=== PATIENT | female | born 2000 | race Caucasian/White ===

== ENCOUNTER 2021-02-01 16:48 | Emergency (ER) | payer MEDICAID, SELFPAY ==
[2021-02-01 16:49] VITALS: BP 156/88; PULSE 90; RESP 16; TEMP 36.6; O2SAT 96; BMI 29.6
--- NOTE | 2021-02-01 17:12 | EKG12_ITS ---
Test Reason : CHEST PAIN Blood Pressure : / mmHG Vent. Rate : 091 BPM Atrial Rate : 091 BPM P-R Int : 144 ms QRS Dur : 106 ms QT Int : 360 ms P-R-T Axes : 024 034 053 degrees QTc Int : 442 ms Normal sinus rhythm Normal ECG Confirmed by FRANCI TRACY, MARIA ELENA ([id number]), news assignment editor CAMILA ALEXANDRE ([id number]) on 02/03/2021 2:42:41 PM Referred By: FELICITA Confirmed By:MAGALI KOROMA MD
--- NOTE | 2021-02-01 17:12 | CT_ITS ---
EXAMINATION : Head CT w/out contrast HISTORY : vertigo COMPARISON : None. TECHNIQUE : Multiple contiguous axial images were obtained from the skull base to the vertex without intravenous contrast. A radiation dose optimization technique was used for this scan. FINDINGS : The ventricles and sulci are normal in size. There is no evidence for acute intracranial hemorrhage, mass effect, or midline shift. There is no extra-axial fluid collection. There is normal flores-white differentiation, without CT evidence of acute ischemia or infarct. The skull base and calvarium are unremarkable. The orbits are unremarkable. The paranasal sinuses are clear. The mastoid air cells are well-aerated. The soft tissues are unremarkable. CT/Brain/Head without Contrast IMPRESSION: No acute intracranial abnormality. Electronically Signed: Elijah Gomez MD at 18:14 EDT Tel , Service support ,
[2021-02-01] MEDS: Meclizine HCl 25 MG Tablet PO (17:17)
[2021-02-01 17:24] LABS: Absolute Lymphocyte Count 2.74 X10^3/uL (0.83-4.51); Absolute Neutrophil Count 7.3 X10^3/uL (2.0-7.7); Basophil# 0.04 X10^3/uL; Basophil% 0.4 % (0-1); Eosinophil# 0.26 X10^3/uL; Eosinophils% 2.4 % (0-5); Hematocrit 41.9 % (37-47); Hemoglobin 13.8 g/dL (12.0-15.0); Lymphocyte # 2.74 X10^3/ul (4.0); Lymphocyte % 24.9 % (19-41); Mean Corp Hgb Conc 32.9 g/dL (32-36); Mean Corpuscular Hgb 27.4 pg (27.0-32.0); Mean Corpuscular Volume 83.3 fL (81-99); Mean Platelet Vol. 9.4 fl (6.2-12.0); Monocyte# 0.59 X10^3/uL; Monocyte% 5.4 % (0-10); NRBC Flagged by Analyzer 0 % (0-5); Neutrophil # 7.32 X10^3/uL (2.7-7.7); Neutrophil % 66.5 % (47-70); Platelet Count 330 K/mm3 (150-450); RBC Distribution Width CV 13.7 % (11.6-14.6); RBC Distribution Width SD 40.9 fl (35.1-43.9); Red Blood Count 5.03 M/mm3 (4.2-5.4)
--- NOTE | 2021-02-01 17:41 | ED.DCSUM_ITS ---
History of Present Illness Chief Complaint: Dizziness Informant: Patient Narrative: Patient is a 20-year-old female who presents to the emergency department for dizziness. She has had these episodes before in the past over the past couple of weeks. They typically only last 20 minutes and resolve on their own. This episode started yesterday and has been continuous. Sitting still resolves her symptoms. Looking around her any movement aggravates her symptoms. She feels like she could pass out that the room spinning sensation gets so bad. She does get nauseous with this. She occasionally see spots in her vision. She denies any headache, neck stiffness. No sore throat. She denies any ringing in her ears. No shortness of breath or heart palpitations. She does occasionally get chest pains, she does not know aggravating or relieving factors with this. She is currently denying any pain now. No abdominal pain. No swelling or pain in her legs. She denies any urinary symptoms. She denies any head trauma. She has not been taking anything for her symptoms. Past Medical History - Allergies and Home Meds Allergies/Adverse Reactions: Allergies ceftriaxone [From Rocephin] Allergy (Verified 02/01/21 16:51) Other SEIZURE Primary Care Physician: Ezio Smith MD [STAFF PHYSICIAN] - 2 Days [facility] Doctor,Out of [Primary Care Provider] - Prior records reviewed: Yes Surgical History: no surgical history Smoking Status: Never smoker Review of Systems All systems negative except as indicated General: Denies: Chills, Fever, Sweats Eyes: Denies: Blurred Vision - bilaterally, Diplopia ENT: Denies: Rhinorrhea, Sore throat Cardiovascular: Reports: Chest pain. Denies: Palpitations Respiratory: Denies: Dyspnea, Cough, Dyspnea on exertion Gastrointestinal: Reports: Nausea. Denies: Abdominal pain, Vomiting, Diarrhea, Melena, Hematochezia Genitourinary: Denies: Dysuria, Hematuria, Frequency Musculoskeletal: Denies: Back pain, Extremity Pain Skin: Denies: Rash, Wounds Neurological: Reports: - - Dizziness. Denies: Headache, Weakness, Numbness Physical Exam Vital Signs/Narrative: Vital Signs Temp Pulse Resp BP Pulse Ox 02/01/21 16:49 97.9 F 90 16 156/88 H 96 Inital Vital Signs reviewed: Yes General: Well nourished, Well developed, No Acute Distress, - - Patient lying still flat on her back. Head: Normocephalic, Atraumatic Eyes: Perrl, EOMI, - - Mild horizontal nystagmus that is fatigable. ENT: Moist mucous membranes, No rhinorrhea Neck: Supple, Nontender Cardiovascular: Regular rate, Regular rhythm, No murmurs Respiratory: No distress, CTA bilaterally, Chest nontender Abdomen: Soft, Nontender, Nondistended, Normal bowel sounds Back: Nontender, Normal Inspection Extremities: Nontender, No edema Skin: Normal color, No rash Neurological: Alert, Oriented x3, Cranial nerves II-XII grossly intact, Normal Strength, Normal Sensation. Negative for: Left side facial droop, Right side facial droop Psychological: Normal affect, Normal Mood Diagnostic/Tx/Re-eval - EKG Initial EKG Interpretation: - - Rate of 91 bpm normal sinus rhythm. Normal intervals. Normal axis. No significant ST elevations or depressions. No T wave abnormalities. - Medical Decision Making Patient presents to the ED for dizziness. She describes as a room spinning sensation. Upon arrival to the ED she is mildly hypertensive but otherwise normal vital signs. She does not have any focal neurological deficits. Keeping completely still resolved her symptoms. This does sound like a peripheral vertigo. She has never been worked up before in the past will check CT head as well as basic lab work. She is given a dose of meclizine for symptomatic treatment. Patient CT scan of her head did not reveal any acute intracranial findings. Lab work did not show any significant electrolyte disturbance or blood count abnormality. She is feeling much better and her dizziness has resolved after the meclizine. I have very low concern for CVA given the resolution of symptoms with treatment and lack of other focal findings. She is starting to have a mild headache but refusing any treatment for this. She does feel comfortable going home. We will write a prescription for meclizine for home treatment. She is to follow-up with her PCP as soon as possible. Return precautions are reviewed with her including any worsening symptoms, developing any neurological deficits. She understands and is agreeable this plan. Discharged home in stable condition. All questions answered. ED Disposition - Plan for ED Patient: Disposition: Home or Assisted Living Diagnosis: Dizziness Instructions: ED Vertigo, Unspecified Prescriptions: Meclizine HCl [Antivert] 25 mg PO 4X/DAY PRN PRN #20 tablet PRN Reason: Dizziness Prescription Printed Referrals: [facility] Doctor,Out of [Primary Care Provider] - Ezio Smith MD [STAFF PHYSICIAN] - 2 Days
[2021-02-01 17:42] LABS: Anion Gap 4 (5-15); BUN 12 mg/dL (7-18); BUN/Creat Ratio 15.4 RATIO (10-20); Calcium,Total 10.2 mg/dL (8.5-10.1); Chloride 107 mmol/L (98-107); Creatinine, Serum 0.78 mg/dL (0.55-1.02); EST Glomerular Filtration Rate 101 mL/min (>60); Est Glom Filt Rate - Afr Amer 122 mL/min (>60); Estimated Creatinine Clearance 104.39 ml/min; Glucose 100 mg/dL (74-106); Internal QC Validated? YES +Cl - CLEAR BKGD; Potassium 3.6 mmol/L (3.5-5.1); Pregnancy, Serum, hCG Quali. NEGATIVE Negative; Sodium Level 137 mmol/L (136-145)
[2021-02-01 17:59] VITALS: BP 117/75; PULSE 75; RESP 16; O2SAT 98
[2021-02-01 18:43] VITALS: BP 124/74; PULSE 62; RESP 15; O2SAT 98
== END 2021-02-01 18:45 | disposition home or self-care (01) ==
PROVIDERS: Emergency Provider Emergency Medicine
DX: R42 Dizziness and giddiness (principal); H55.00 Unspecified nystagmus; Z88.1 Allergy status to other antibiotic agents
CPT/HCPCS: 70450; 80048; 84484; 84703; 85025; 93005; 99284; A4216

== ENCOUNTER → 2021-05-04 11:34 | Outpatient (CLI) | payer MEDICAID, SELFPAY ==
[2021-05-04 10:58] VITALS: BMI 29.6
[2021-05-04 16:25] LABS: Chlamydia Trachomatis by PCR Negative (Negative); Neisserai gonorrhoeae by PCR Negative (Negative); Probe Check PASS; Sample Adequacy Control PASS; Specimen Processing Control PASS
== END ==
PROVIDERS: Referring Provider Nurse Practitioner Women's Health; Visit Provider Nurse Practitioner Women's Health
DX: Z11.3 Encounter for screening for infections with a predominantly sexual mode of transmission (principal)
CPT/HCPCS: 87491; 87591

== ENCOUNTER 2021-06-20 21:02 | Emergency (ER) | payer MEDICAID, SELFPAY ==
[2021-06-20 21:03] VITALS: BP 146/73; PULSE 88; RESP 15; TEMP 36.1; O2SAT 97; BMI 30.2
[2021-06-20 21:06] VITALS: BP 146/73; PULSE 84; PULSE 88; RESP 15; TEMP 36.1; O2SAT 97
[2021-06-20 21:26] LABS: Mucous, Urine 0 SEEN /hpf (<or=2+)
[2021-06-20 21:33] LABS: Color, Urine Yellow (Yellow); Glucose, Dipstick Normal (Normal); Ketone-Dipstick Negative (Negative); Leukocyte Esterase-Dipstick 500 /ul (Negative); Nitrite-Dipstick Negative (Negative); Occult Blood-Urine 150 /ul (Negative); Protein-Dipstick 100 mg/dl (Negative); Specific Gravity, Urine 1.015 (1.002-1.030); Urine Bilirubin Dipstick Negative (Negative); Urine Clarity Cloudy (Clear); Urine Urobilinogen Normal (Normal); Urine pH 6.5 (5.0 - 8.0)
[2021-06-20 21:52] LABS: Bacteria RARE /hpf (None Seen); Internal QC Validated? YES +Cl - CLEAR BKGD; Pregnancy, Urine Negative Negative; Red Blood Cells-Urine 50-100 SEEN /hpf (0-5); Squamous Epithelial Cells - UA 0-5 SEEN /hpf (5-10); White Blood Cells 25-50 SEEN /hpf (0-5)
--- NOTE | 2021-06-20 22:41 | EDS_ITS ---
HPI HPI - Female History of Present Illness Chief Complaint: Complaint Informant: patient Narrative Narrative: Patient presents with urinary symptoms. About 3 days ago she started with burning with urination. Its mostly externally and in the bladder area. She states the pain is now moved up toward her left flank. She has no nausea or vomiting. No fevers or chills. No history of immunosuppression. No she has never had a kidney stone although there have been family members needed. Nothing really makes the pain better. Urinating makes it worse. She is eating and drinking well. PFSH PFS Medical History Anxiety Home Medications multivitamin with minerals 1 each PO DAILY 02/01/21 [History Last Taken Unknown] norelgestromin 150 mcg-e.estradiol 35 mcg/24 hr weekly transderm patch 1 patch TRANSDERMAL QWEEK #9 ea 05/04/21 [Rx Last Taken Unknown] naproxen 500 mg PO BID #14 tab 06/20/21 [Rx Last Taken Unknown] ondansetron 4 mg PO Q8H PRN #10 tab 06/20/21 [Rx Last Taken Unknown] phenazopyridine [Pyridium] 200 mg PO BID PRN PRN #10 tab 06/20/21 [Rx Last Taken Unknown] sulfamethoxazole-trimethoprim [Bactrim DS] 1 tab PO BID #20 tab 06/20/21 [Rx Last Taken Unknown] Allergy/AdvReac Type Severity Reaction Status Date / Time ceftriaxone [From Rocephin] Allergy Other Verified 06/20/21 21:03 Family History Mother Heart disease Obesity Surgical History History of oral surgery History of tonsillectomy Social History household members: significant other and friend(s) number of children: 0 current occupational status: employed and student current occupation: [employer] for 2 more weeks and then [employer] history of recent travel: Yes sexually active: Yes Smoking Status: Never smoker alcohol intake: never substance use type: does not use diet: other what type of physical activity do you participate in: aerobics and weight training frequency: 3-4 times per week seatbelt use: always do you feel safe at home: Yes additional social history: single ROS ROS ED Constitutional Constitutional ED: Denies chills or fever(s) Eyes Eyes: Denies blurry vision ENT ENT ED: Denies rhinorrhea Cardiovascular Cardiovascular: Denies palpitations Respiratory/Chest Respiratory/Chest: Denies cough or dyspnea Gastrointestinal Gastrointestinal: Reports other Details: She does have suprapubic discomfort. No pain anywhere else. No pain with eating. ; Denies constipation, diarrhea, melena, nausea or vomiting Genitourinary Genitourinary ED: Reports dysuria, urinary frequency and other Details: See history of present illness. She has frequency dysuria and urgency. ; Denies hematuria Musculoskeletal Musculoskeletal: Denies arthralgias or myalgias Integumentary Denies rash Neurologic Neurologic: Denies headache(s) Psychiatric Psychiatric: Reports anxiety Hematologic/Lymphatic Hematologic/Lymphatic: Denies easy bleeding or easy bruising EXAM Physical Exam Const Vital Signs: 06/20/21 21:03 06/20/21 21:06 Temperature 96.9 F L 96.9 F L Temperature Source Temporal Temporal Pulse Rate 88 88 Respiratory Rate 15 15 Blood Pressure 146/73 H 146/73 H Blood Pressure Mean 97 97 Pulse Ox 97 97 Oxygen Delivery Method Room Air Room Air Positive well nourished and well developed General Appearance ED: well developed HEENT Reports moist mucous membranes Resp normal respiratory effort and clear to auscultation bilaterally Cardio regular rate and regular rhythm GI normal to inspection, nondistended, normoactive bowel sounds, soft to palpation and non-distended GI Narrative: Patient's abdomen is totally benign except for some mild suprapubic tenderness. No tenderness or right or left lower quadrant or upper abdomen. No rebound or guarding. No mass. no CVA tenderness Narrative: Patient's area of sore back is actually in her low lumbar area on both sides even though it is more on the left. It is not CVA tenderness. She states she normally gets back pain with her menstrual cycles and her menstrual cycle ended yesterday. Back/Spine no CVA tenderness Back/Spine Narrative: Paraspinal tenderness low lumbar left greater than right. Lumbar Spine / Lower Back: lumbar spinal tenderness Extremity General Extremety ED: Negative for edema General Extremity: Negative for edema Neuro oriented x3 Sensorium / Orientation: alert Skin no rashes or lesions noted MDM MDM MDM Narrative Medical decision making narrative: I had a discussion with patient regarding options. She has never had a kidney stone and her pain was not sudden onset or sharp. It started with dysuria. She then developed frequency and urgency. It started in the urethral and suprapubic area and has moved up toward the left. She does not actually have CVA tenderness but I still concerned about her symptoms may be early pyelonephritis. We discussed the options of pursuing kidney stone but she has never had 1 and her story matches that of pyelonephritis much more than kidney stone. We would like to avoid the radiation. Since she has no fevers chills nausea or vomiting I am not going to do extensive blood work. We will treat as though she has early pyelonephritis. I will give her something for pain and nausea as an adjunct of therapy. We will use Pyridium and Bactrim. Lab Data Attestation: I reviewed the patient's lab results. Labs: Laboratory Results - last 24 hr 06/20/21 21:18 Urine Color Yellow Urine Clarity Cloudy Urine pH 6.5 Ur Specific [place] 1.015 Urine Protein 100 H Urine Glucose (UA) Normal Urine Ketones Negative Urine Occult Blood 150 H Urine Nitrite Negative Urine Bilirubin Negative Urine Urobilinogen Normal Ur Leukocyte Esterase 500 H Urine RBC 50-100 SEEN Urine WBC 25-50 SEEN Ur Squamous Epith Cells 0-5 SEEN Urine Bacteria RARE Urine Mucus 0 SEEN Urine Test Negative Discharge Plan Triage Chief Complaint: Complaint ED Provider: Tristan Jeffries Dx/Rx/DC Orders Clinical Impression: Pyelonephritis Instructions: ED Pyelonephritis, Female (Adult) Prescriptions: New phenazopyridine [Pyridium] 200 MG tablet 200 mg PO BID PRN PRN (Reason: Pain) Qty: 10 RF: 0 ondansetron 4 mg tablet,disintegrating 4 mg PO Q8H PRN (Reason: nausea and vomiting) Qty: 10 RF: 0 naproxen 500 MG tablet 500 mg PO BID Qty: 14 RF: 0 sulfamethoxazole-trimethoprim [Bactrim DS] 800-160 mg tablet 1 tab PO BID Qty: 20 RF: 0 No Action Xulane 150-35 mcg/24 hr patch weekly 1 patch transdermal QWEEK Qty: 9 RF: 4 multivitamin with minerals 1 EACH tablet 1 each PO DAILY RF: 0 Primary Care Provider: [facility] Doctor,Out of Referrals: [facility] Doctor,Out of [Primary Care Provider] -
[2021-06-20] MEDS: Phenazopyridine 95 MG Tablet 190 MG PO (22:59)
[2021-06-20] MEDS: Smz/Tmp Ds Tablet 1 TABLET PO (22:59)
== END 2021-06-20 23:04 | disposition home or self-care (01) ==
PROVIDERS: Emergency Provider Emergency Medicine
DX: N12 Tubulo-interstitial nephritis, not specified as acute or chronic (principal)
CPT/HCPCS: 81001; 81025; 99283

== ENCOUNTER → 2022-06-06 | Outpatient (CLI) | payer MEDICAID, SELFPAY ==
[2022-06-12 00:06] LABS: Chlamydia By Nucleic Acid AMP Negative (Negative)
[2022-06-12 12:42] LABS: Gonococcus By Nucleic Acid AMP Negative (Negative)
== END | disposition home or self-care (01) ==
LOC: LABSPEC 16:34
PROVIDERS: Visit Provider Nurse Practitioner Women's Health
DX: Z11.3 Encounter for screening for infections with a predominantly sexual mode of transmission (principal); N76.0 Acute vaginitis
CPT/HCPCS: 87070; 87205; 87491; 87591